=== PATIENT | male | born 2005 | race Caucasian/White ===

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

== ENCOUNTER 2024-04-15 19:39 | Emergency (ER) | payer SELFPAY ==
[~2024-04-15] VITALS: Ht 182.9 cm; Wt 63.5 kg
[2024-04-15] MEDS ORDERED: DiphenhydrAMINE HCL 25 MG CPLT PO ONE (22:30)
[2024-04-15] MEDS ORDERED: DEXAMETHASONE 2 MG/TAB TAB PO ONE (22:30)
[2024-04-15] MEDS ORDERED: BENADRYL25 M1 PO (22:32)
[2024-04-15] MEDS ORDERED: EPIPEN 2-P0.3 MG/0.3 IM (22:32)
[2024-04-15 22:45] VITALS: BP 110/70
== END 2024-04-15 22:45 | disposition home or self-care (01) | DRG 607 ==
LOC: ED 19:39
DX: L50.9 Urticaria, unspecified (principal)